=== PATIENT | female | born 1975 | race Hispanic/Latino ===

== ENCOUNTER 2025-05-04 09:54 | Emergency (ER) | payer SELFPAY ==
[~2025-05-04] VITALS: Ht 165.1 cm; Wt 68.0 kg
[2025-05-04 10:10] VITALS: TEMP 98.2
[2025-05-04] MEDS: KETOROLAC TROMETHAMINE 30 MG/ML VIAL IM STA (11:52)
[2025-05-04] MEDS: TRAMADOL HCL 50 MG TAB PO ONE (11:52)
[2025-05-04 12:30] VITALS: PULSE 56; RESP 16; O2SAT 98
[2025-05-04] MEDS ORDERED: ULTRAM 50MG50 MG PO (12:38)
== END 2025-05-04 13:15 | disposition home or self-care (01) ==
LOC: ER 10:51
DX: S52.591A Other fractures of lower end of right radius, initial encounter for closed fracture (principal); S00.83XA Contusion of other part of head, initial encounter; W20.8XXA Other cause of strike by thrown, projected or falling object, initial encounter; Y92.89 Other specified places as the place of occurrence of the external cause
CPT/HCPCS: 29125; 70450; 70486; 72125; 72192; 73080; 73110; 99284; J1885